=== PATIENT | male | born 1980 | race African-American/Black ===

== ENCOUNTER 2019-05-30 16:56 | Emergency (ER) | payer OTHER ==
[~2019-05-30] VITALS: Ht 172.7 cm; Wt 70.3 kg
[2019-05-30 17:04] VITALS: BP 132/84
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
--- NOTE | 2019-05-30 17:10 | NUR ---
Patient ambulated to bed 8
--- NOTE | 2019-05-30 17:20 | NUR ---
DR. PHAN AT BEDSIDE EVALUATING PT
[2019-05-30] MEDS ORDERED: IBUPROFEN 800 MG TAB PO ONE (17:40)
--- NOTE | 2019-05-30 17:57 | NUR ---
SHORT ARM ULNAR GUTTER SPLINT PLACED ON PATIENT'S RIGHT HAND.
[2019-05-30 19:00] VITALS: BP 132/84
--- NOTE | 2019-05-30 19:01 | NUR ---
Patient discharged with v/s stable. Written and verbal after care instructions given and explained. Patient alert, oriented and verbalized understanding of instructions. Ambulatory with steady gait. All questions addressed prior to discharge. ID band removed. Patient advised to follow up with PMD. Rx of IBUPROFEN given. Patient educated on indication of medication including possible reaction and side effects. Opportunity to ask questions provided and answered. COPY OF XRAY CD PROVIDED.
== END 2019-05-30 19:01 | disposition home or self-care (01) ==
LOC: MED 16:56
DX: S62.396A Other fracture of fifth metacarpal bone, right hand, initial encounter for closed fracture (principal); V09.9XXA Pedestrian injured in unspecified transport accident, initial encounter; Y93.89 Activity, other specified; Y92.89 Other specified places as the place of occurrence of the external cause; Y99.8 Other external cause status
CPT/HCPCS: 29125; 73090; 73110; 73130; 99283; Q0092